=== PATIENT | male | born 1980 | race Two or more races ===

== ENCOUNTER 2025-03-16 12:35 | Outpatient (REF) | payer BC, SELFPAY ==
--- NOTE | ~2025-03-16 | XR_ITS ---
EXAMINATION: XR LUMBAR SPINE 2-3 VIEWS HISTORY: chronic LBP, h/o discectomy COMPARISON: There are no prior studies for comparison. FINDINGS: AP, lateral, and coned down views of the lumbar spine are submitted. Osseous mineralization is normal. The patient is status post posterior fusion of L4-S1 with pedicle screws, spinal stabilization rods, and intervertebral spacers. The fusion hardware is intact. There is mild anterior wedging of L2. The remaining vertebral bodies maintain normal height. Alignment is anatomic. The intervertebral disc spaces are maintained. The visualized paraspinal soft tissues are unremarkable. XR/XR lumbar spine 2-3V IMPRESSION: 1. Status post posterior fusion of L4-S1. 2. Mild anterior wedging of L2, likely chronic. Comparison with prior outside studies is recommended. Electronically signed by: Joshua Thomas MD 03/16/2025 01:05 PM EDT
--- OUTSIDE RECORDS SUMMARY | 2025-03-16 13:45 | XMS_ITS | Encounter Summary ---
Author Organization [email or web address] Address [address] [facility] 7[address] [place] [address] Care Team Providers Care District Home Economics Agent Name Role Phone Unavailable Primary Care Provider Unavailabl e Reason for Visit * Reason Onset Date Comments Chart Prep 03/11/2025 Encounter Details Date Type Department Care Team (Late st Contact Info) Description 03/11/2025 Telephone [facility] MEDICINE [address] [place], [place] [phone] Paula Reyes DO [address] [place], [place] [phone] Chart Prep Social History Tobacco Use Types Packs/Day Years Used Date Smoking Tobacco: Never Assessed Comments Unknown Sex and Gender Information Value Date Recorded Sex Assigned at Unknown 03/15/2025 11:43 AM EDT Legal Sex Male 2:28 PM EDT Gender Identity Male 03/16/2025 12:01 PM EDT Sexual Orientation Pearce 03/16/2025 12 :01 PM EDT documented as of this encounter Miscellaneous Notes * Telephone Encounter - Michaela Marquez [place] - 03/11/2025 2:19 PM EDT Chart Prep Labs: not applicable Images: not applicable Referrals: not applicable Vaccines due: Covid, Flu, Tdap, and Hep B Screenings: LMP and HIV Screening, Hepatitis Screening, Tobacco Screening Overdue care gaps: SBIRT, SDOH, PHQ-9, TREVOR-7, Oral health screening, Disability screen, and Tobacco documented in this encounter Plan of Treatment Not on file documented as of this encounter Visit Diagnoses Not on filedocumented in this encounter
--- OUTSIDE RECORDS SUMMARY | 2025-03-16 13:45 | XMS_ITS | Encounter Summary ---
Author Organization [employer] Address [address] [facility] [address] [place] [address] Care Team Providers Care Oiling Machine Operator Name Role Phone Paula Reyes DO Primary Care Provider [phone] Encounter Details Date Type Department Care Team (Late st Contact Info) Description 03/16/2025 10:45 AM EDT Office Visit [facility] [address] [place], [place] [phone] Paula Reyes DO [address] [place], [place] [phone] Routine history and physical examination of adult (Primary Dx); Mild intermittent asthma without complication; Chronic bilateral low back pain without sciatica; Subcutaneous nodule; Decreased visual acuity; Decreased hearing of both ears; BMI 28.0-28.9,adult Social History Tobacco Use Types Packs/Day Years Used Date Smoking Tobacco: Never Smokeless Tobacco: Never Tobacco Cessation:Counseling Given: Not Answered Alcohol Use Standard Drinks/Week Comments Never 0 (1 standard drink = 0.6 oz pur e alcohol) Comments Unknown Sex and Gender Information Value Date Recorded Sex Assigned at Unknown 03/15/2025 11:43 AM EDT Legal Sex Male 2:28 PM EDT Gender Identity Male 03/16/2025 12:01 PM EDT Sexual Orientation Pearce 03/16/2025 12 :01 PM EDT documented as of this encounter Last Filed Vital Signs Vital Sign Reading Time Taken Comments Blood Pressure 126/70 03/16/2025 11:08 AM EDT Pulse 59 03/16/2025 11:08 AM EDT Temperature 37.1 ??C (98.7 ??F) 03/16/2025 11:08 AM E DT Respiratory Rate 19 03/16/2025 11:08 AM EDT Oxygen Saturation 98% 03/16/2025 11:08 AM EDT Inhaled Oxygen Concentration - - Weight 73.7 kg (162 lb 8 oz) 03/16/2025 11:08 AM EDT Height 160 cm (5' 3 ) 03/16/2025 11:08 AM EDT Body Mass Index 28.79 03/16/2025 11:08 AM EDT documented in this encounter Plan of Treatment Scheduled Orders Name Type Priority Associated Diagnoses Orde r Schedule T4, Free Lab Routine Routine history and physical examination of adult Mild intermittent asthma without complication Chronic bilateral low back pain without sciatica Subcutaneous nodule Decreased visual acuity Decreased hearing of both ears BMI 28.0-28.9,adult Expected: 03/16/2025 (Approximate), Expires: 03/16/2026 Lipid Panel, Standard Lab Routine Routine history and physical examination of adult Mild intermittent asthma without complication Chronic bilateral low back pain without sciatica Subcutaneous nodule Decreased visual acuity Decreased hearing of both ears BMI 28.0-28.9,adult Expected: 03/16/2025 (Approximate), Expires: 03/16/2026 TSH Lab Routine Routine history and physical examination of adult Mild intermittent asthma without complication Chronic bilateral low back pain without sciatica Subcutaneous nodule Decreased visual acuity Decreased hearing of both ears BMI 28.0-28.9,adult Expected: 03/16/2025 (Approximate), Expires: 03/16/2026 Vitamin D, 25-Hydroxy, Total, Immunoassay Lab Routine Routine history and physical examination of adult Mild intermittent asthma without complication Chronic bilateral low back pain without sciatica Subcutaneous nodule Decreased visual acuity Decreased hearing of both ears BMI 28.0-28.9,adult Expected: 03/16/2025 (Approximate), Expires: 03/16/2026 Hepatic Function Panel Lab Routine Routine history and physical examination of adult Mild intermittent asthma without complication Chronic bilateral low back pain without sciatica Subcutaneous nodule Decreased visual acuity Decreased hearing of both ears BMI 28.0-28.9,adult Expected: 03/16/2025 (Approximate), Expires: 03/16/2026 Hemoglobin A1c Lab Routine Routine history and physical examination of adult Mild intermittent asthma without complication Chronic bilateral low back pain without sciatica Subcutaneous nodule Decreased visual acuity Decreased hearing of both ears BMI 28.0-28.9,adult Expected: 03/16/2025 (Approximate), Expires: 03/16/2026 CBC Lab Routine Routine history and physical examination of adult Mild intermittent asthma without complication Chronic bilateral low back pain without sciatica Subcutaneous nodule Decreased visual acuity Decreased hearing of both ears BMI 28.0-28.9,adult Expected: 03/16/2025, Expires: 03/16/2026 Basic Metabolic Panel Lab Routine Routine history and physical examination of adult Mild intermittent asthma without complication Chronic bilateral low back pain without sciatica Subcutaneous nodule Decreased visual acuity Decreased hearing of both ears BMI 28.0-28.9,adult Expected: 03/16/2025 (Approximate), Expires: 03/16/2026 Varicella zoster antibody, IgG Lab Routine Routine history and physical examination of adult Mild intermittent asthma without complication Chronic bilateral low back pain without sciatica Subcutaneous nodule Decreased visual acuity Decreased hearing of both ears BMI 28.0-28.9,adult Expected: 03/16/2025 (Approximate), Expires: 03/16/2026 Measles, Mumps, and Rubella (MMR) Antibodies??(IgG) Panel, Immune Status Lab Routine Routine history and physical examination of adult Mild intermittent asthma without complication Chronic bilateral low back pain without sciatica Subcutaneous nodule Decreased visual acuity Decreased hearing of both ears BMI 28.0-28.9,adult Expected: 03/16/2025 (Approximate), Expires: 03/16/2026 Hepatitis B surface antigen, EIA Lab Routine Routine history and physical examination of adult Mild intermittent asthma without complication Chronic bilateral low back pain without sciatica Subcutaneous nodule Decreased visual acuity Decreased hearing of both ears BMI 28.0-28.9,adult Expected: 03/16/2025 (Approximate), Expires: 03/16/2026 Chlamydia/N. Gonorrhoeae RNA, TMA, Urogenitial Microbiology Routine Routine history and physical examination of adult Mild intermittent asthma without complication Chronic bilateral low back pain without sciatica Subcutaneous nodule Decreased visual acuity Decreased hearing of both ears BMI 28.0-28.9,adult Ordered: 03/16/2025 HIV-1/2 Antigen and Antibodies, Fourth Generation, with Reflexes Lab Routine Routine history and physical examination of adult Mild intermittent asthma without complication Chronic bilateral low back pain without sciatica Subcutaneous nodule Decreased visual acuity Decreased hearing of both ears BMI 28.0-28.9,adult Expected: 03/16/2025 (Approximate), Expires: 03/16/2026 Hepatitis C Antibody with Reflex to HCV, RNA, Quantitative, Real-Time PCR Lab Routine Routine history and physical examination of adult Mild intermittent asthma without complication Chronic bilateral low back pain without sciatica Subcutaneous nodule Decreased visual acuity Decreased hearing of both ears BMI 28.0-28.9,adult Expected: 03/16/2025, Expires: 03/16/2026 RPR (Monitor) with Reflex to??Titer Lab Routine Routine history and physical examination of adult Mild intermittent asthma without complication Chronic bilateral low back pain without sciatica Subcutaneous nodule Decreased visual acuity Decreased hearing of both ears BMI 28.0-28.9,adult Expected: 03/16/2025, Expires: 03/16/2026 Hepatitis B Surface Antibody, Qualitative Lab Routine Routine history and physical examination of adult Mild intermittent asthma without complication Chronic bilateral low back pain without sciatica Subcutaneous nodule Decreased visual acuity Decreased hearing of both ears BMI 28.0-28.9,adult Expected: 03/16/2025 (Approximate), Expires: 03/16/2026 Hepatitis A Antibody, Total Lab Routine Routine history and physical examination of adult Mild intermittent asthma without complication Chronic bilateral low back pain without sciatica Subcutaneous nodule Decreased visual acuity Decreased hearing of both ears BMI 28.0-28.9,adult Expected: 03/16/2025 (Approximate), Expires: 03/16/2026 Hepatitis B Core Antibody, Total Lab Routine Routine history and physical examination of adult Mild intermittent asthma without complication Chronic bilateral low back pain without sciatica Subcutaneous nodule Decreased visual acuity Decreased hearing of both ears BMI 28.0-28.9,adult Expected: 03/16/2025 (Approximate), Expires: 03/16/2026 T-SPOT??.TB Lab Routine Routine history and physical examination of adult Mild intermittent asthma without complication Chronic bilateral low back pain without sciatica Subcutaneous nodule Decreased visual acuity Decreased hearing of both ears BMI 28.0-28.9,adult Expected: 03/16/2025 (Approximate), Expires: 03/16/2026 documented as of this encounter Procedures Procedure Name Priority Date/Time Associated Diagnosis Comments XR LUMBAR SPINE 2-3 VIEWS Routine 03/16/2025 12:39 PM EDT Chronic bilateral low back pain without sciatica documented in this encounter Results * XR Lumbar Spine 2-3 Views (03/16/2025 12:39 PM EDT) Anatomical Region Laterality Modality Spine, L-spine Radiographic Keeley ging 03/16/2025 12:3 9 PM EDT Narrative 03/16/2025 1:08 PM EDT ?[facility] ?[address] ?[place] [address] ?XRay Report ? Signed ? Patient: Colon, ?MR#: [id number] ? : 1980 ?Acct:[id number] ? Age/Sex: 44 / M ?ADM Date: 03/16/25 ? Loc: HO.HHCX ? Attending Dr: Paula Reyes DO ? Ordering Physician: Paula Reyes DO ?? Date of Service: 03/16/25 ?? Procedure(s): XR lumbar spine 2-3V ?? Accession Number(s): [id number] ? cc: Paula Reyes DO ? EXAMINATION: ??XR LUMBAR SPINE 2-3 VIEWS ? HISTORY: chronic LBP, h/o discectomy ? COMPARISON: There are no prior studies for comparison. ? FINDINGS: ??AP, lateral, and coned down views of the lumbar spine are ?? submitted. ??Osseous mineralization is normal. The patient is status ?? post posterior fusion of L4-S1 with pedicle screws, spinal ?? stabilization rods, and intervertebral spacers. The fusion hardware is ?? intact. ??There is mild anterior wedging of L2. ??The remaining vertebral ?? bodies maintain normal height. Alignment is anatomic. ??The ?? intervertebral disc spaces are maintained. ??The visualized paraspinal ?? soft tissues are unremarkable. ? XR/XR lumbar spine 2-3V ?? IMPRESSION: ? 1. Status post posterior fusion of L4-S1. ? 2. Mild anterior wedging of L2, likely chronic. Comparison with prior ?? outside studies is recommended. ? Electronically signed by: ??Joshua Thomas MD ??03/16/2025 01:05 PM EDT ?? RP ? Dictated By: ?Joshua Thomas MD ? Signed By: ?<Electronically signed by Joshua Thomas MD in OV> ?03/16/25 1305 ? DD/ 1239 ? TD/TT: 03/16/25 1300 ? Machine Preservative Filler: ? Procedure Note Shasta, Image - 03/16/2025 [facility] [address] [place] [address] XRay Report Signed Patient: Artem Gaines#: [id number] : 1980Acct:[id number] Age/Sex: 44 / MADM Date: 03/16/25 Loc: HO.HHCX Attending Dr: Paula Reyes DO Ordering Physician: Paula Reyes DO Date of Service: 03/16/25 Procedure(s): XR lumbar spine 2-3V Accession Number(s): [id number] cc: Paula Reyes DO EXAMINATION: XR LUMBAR SPINE 2-3 VIEWS HISTORY: chronic LBP, h/o discectomy COMPARISON: There are no prior studies for comparison. FINDINGS: AP, lateral, and coned down views of the lumbar spine are submitted. Osseous mineralization is normal. The patient is status post posterior fusion of L4-S1 with pedicle screws, spinal stabilization rods, and intervertebral spacers. The fusion hardware is intact. There is mild anterior wedging of L2. The remaining vertebral bodies maintain normal height. Alignment is anatomic. The intervertebral disc spaces are maintained. The visualized paraspinal soft tissues are unremarkable. XR/XR lumbar spine 2-3V IMPRESSION: 1. Status post posterior fusion of L4-S1. 2. Mild anterior wedging of L2, likely chronic. Comparison with prior outside studies is recommended. Electronically signed by: Joshua Thomas MD 03/16/2025 01:05 PM EDT Dictated By: Joshua Thomas MD Signed By: <Electronically signed by Joshua Thomas MD in OV> 03/16/25 1305 DD/ 1239 TD/TT: 03/16/25 1300 Machine Preservative Filler: Paula Reyes DO IMG XR PROCEDURES Final Resu lt documented in this encounter Visit Diagnoses Diagnosis Routine history and physical examination of adult- Primary Mild intermittent asthma without complication Chronic bilateral low back pain without sciatica Subcutaneous nodule Decreased visual acuity Decreased hearing of both ears BMI 28.0-28.9,adult documented in this encounter Care Teams Oiling Machine Operator Relationship Specialty Start Date End Date Paula Reyes DO [address] [place] [id number] PCP - General Family Medicine 03/16/25 documented as of this encounter
--- OUTSIDE RECORDS SUMMARY | 2025-03-16 13:45 | XMS_ITS | Encounter Summary ---
Author Organization [employer] Address 75 [facility] 7t [place] [address] Care Team Providers Care Spine Specialist Name Role Phone Paula Reyes DO Primary Care Provider Encounter Details Date Type Department Care Team (Latest Contact Info) Description 03/16/2025 Travel Social History Tobacco Use Types Packs/Day Years Used Date Smoking Tobacco: Never Smokeless Tobacco: Never Alcohol Use Standard Drinks/Week Comments Never 0 (1 standard drink = 0.6 oz pur e alcohol) Comments Unknown Sex and Gender Information Value Date Recorded Sex Assigned at Unknown 03/15/2025 11:43 AM EDT Legal Sex Male 2:28 PM EDT Gender Identity Male 03/16/2025 12:01 PM EDT Sexual Orientation Pearce 03/16/2025 12 :01 PM EDT documented as of this encounter Plan of Treatment Not on file documented as of this encounter Visit Diagnoses Not on filedocumented in this encounter Care Teams Spine Specialist Relationship Specialty Start Date End Date Paula Reyes DO [address] [place] [phone] PCP - General Family Medicine 03/16/25 documented as of this encounter
--- OUTSIDE RECORDS SUMMARY | 2025-03-16 13:45 | XMS_ITS | Clinical Summary ---
Author Organization [employer] Address 75 [facility] 7t h Floor [place] [phone] Care Team Providers Care Special Population Paraprofessional Name Role Phone Paula Reyes DO Primary Care Provider Allergies No known active allergies Encounters Date Type Department Care Team Description 03/16/2025 10:45 AM EDT Office Visit [address] [phone] Paula Reyes DO Routine history and physical examination of adult (Primary Dx); Mild intermittent asthma without complication; Chronic bilateral low back pain without sciatica; Subcutaneous nodule; Decreased visual acuity; Decreased hearing of both ears; BMI 28.0-28.9,adult 03/16/2025 Travel 03/11/[address] [phone] Paula Reyes DO Chart Prep 03/08/2025 Patient Outreach [address] [address] Bartolo Mack MD Pre-visit Planning (Pre visit planning LVM ) 12/22/[address] [phone] Bartolo Mack MD from Last 3 Months Family History Medical History Relation Name Comments Diabetes Brother Diabetes Father Heart disease Father Hypertension Father Stroke Father Ovarian cancer Mother Breast cancer Mother's Sister Diabetes Paternal Grandfather Diabetes Paternal Grandmother Relation Name Status Comments Brother Father Mother Mother's Sister Paternal Grandfather Paternal Grandmother Social History Tobacco Use Types Packs/Day Years [...] Orientation Pearce 03/16/2025 12 :01 PM EDT Last Filed Vital Signs Vital Sign Reading [...] Mass Index 28.79 03/16/2025 11:08 AM EDT Plan of Treatment Health Maintenance Due Date Last Done Comments Depression Screening 1980 HIV Screening 1980 Lipid Panel 1980 SDOH Screening 1980 Disability Screening 1980 Family Planning (PISQ) 1995 Hepatitis C Screening 1998 DTaP/Tdap/Td Vaccines (1 - Tdap) 1999 Hepatitis B Vaccines (1 of 3 - 19+ 3-dose series) 1999 Pneumococcal Vaccine: Pediat rics (0 to 5 Years) and At-Risk Patients (6 to 49) Years) (1 of 2 - PCV) 1999 COVID-19 Vaccine ( - 2023-2 5 season) 2024 Influenza Vaccine (#1) 2024 Alcohol/Substance Use Screening 03/16/2026 Tobacco Screening 03/16/2026 03/16/2025 Zoster Vaccines (1 of 2) 2030 RSV Patients and Pa tients Aged 60 years or older (1 - 1-dose 75+ series) 2055 HIB Vaccines Aged Out No longer eligi ble based on patient's age to complete this topic HPV Vaccines Aged Out No longer eligi ble based on patient's age to complete this topic Hepatitis A Vaccines Aged Out No long er eligible based on patient's age to complete this topic IPV Vaccines Aged Out No longer eligi ble based on patient's age to complete this topic Meningococcal B Vaccine Aged Out No l onger eligible based on patient's age to complete this topic Meningococcal Vaccine Aged Out No jenna sonia eligible based on patient's age to complete this topic RSV under 20 months Aged Out No longe r eligible based on patient's age to complete this topic Rotavirus Vaccines Aged Out No longer eligible based on patient's age to complete this topic Procedures Procedure Name Priority Date/Time Associated Diagnosis Comments XR LUMBAR SPINE 2-3 VIEWS Routine 03/16/2025 12:39 PM EDT Chronic bilateral low back pain without sciatica from Last 3 Months Results * XR Lumbar Spine 2-3 Views (03/16/2025 12:39 PM EDT) Anatomical Region Laterality Modality Spine, L-spine Radiographic Keeley ging 03/16/2025 12:3 9 PM EDT Narrative 03/16/2025 1:08 PM EDT ?[facility] ?[address] ?[place] [address] ?XRay Report ? Signed ? Patient: Colon, ?MR#: [id number] ? : 1980 ?Acct:[id number] ? Age/Sex: 44 / M ?ADM Date: 03/16/25 ? Loc: HO.HHCX ? Attending Dr: Paula Reyes DO ? Ordering Physician: Paula Reyes DO ?? Date of Service: 03/16/25 ?? Procedure(s): XR lumbar spine 2-3V ?? Accession Number(s): [id number] ? cc: Paula Reyes DO ? EXAMINATION: [...] ??Joshua Thomas MD ??03/16/2025 01:05 PM EDT ? Dictated By: ?Joshua Thomas MD ? Signed By: ?<Electronically signed by Joshua Thomas MD in OV> ?03/16/25 1305 ? DD/ 1239 ? TD/TT: 03/16/25 1300 ? Typesetting Machine Operator/Tender: ? Procedure Note Shasta, Rolando - 03/16/[address] [address] XRay Report Signed Patient: Jose GainesMR#: [id number] : 1980Acct:[id number] Age/Sex: 44 / MADM Date: 03/16/25 Loc: HO.HHCX Attending Dr: Paula Reyes DO Ordering Physician: Paula Reyes DO Date of Service: 03/16/25 Procedure(s): XR lumbar spine 2-3V Accession Number(s): [id number] cc: Paula Reyes DO EXAMINATION: XR LUMBAR [...] Joshua Thomas MD 03/16/2025 01:05 PM EDT RP Dictated By: Joshua Thomas MD Signed By: <Electronically signed by Joshua Thomas MD in OV> 03/16/25 1305 DD/ 1239 TD/TT: 03/16/25 1300 Typesetting Machine Operator/Tender: Paula Reyes DO IMG XR PROCEDURES Final Resu lt from Last 3 Months Insurance [employer]BS PPO Care Teams Special Population Paraprofessional Relationship Specialty Start Date End Date Paula Reyes DO [address] [place] [address] PCP - General Family Medicine 03/16/25
[2025-03-16 16:43] LABS: Hematocrit 45.1 % (42.0-52.0); Hemoglobin 15.4 g/dl (14.0-18.0); Mean Corpuscular HGB Conc 34.1 g/dl (31.0-36.0); Mean Corpuscular Hemoglobin 29.4 pg (27.0-33.0); Mean Corpuscular Volume 86.1 fL (80.0-98.0); Mean Platelet Volume 9.9 fL (9.4-12.4); NRBC Pct Auto 0.4 /100WBC (0.0-0.2); Platelet Count 313 X10*3/uL (160-400); Red Blood Count 5.24 X10*6/uL (4.60-5.80); Red Cell Distribution Width 13.4 % (11.0-16.0); White Blood Count 7.7 X10*3/uL (4.8-10.8)
[2025-03-16 16:52] LABS: Estimated Average Glucose 103 mg/dL; Hemoglobin A1C 129.4333 umol/L; Hemoglobin A1c % 5.2 % (<6.0); Total Hemoglobin (HGBA1C) 3841.5966 umol/L
[2025-03-16 16:56] LABS: Alanine Aminotransferase 29 U/L (0-40); Alkaline Phosphatase 76 U/L (39-117); Anion Gap 10 (12-20); Aspartate Amino Transferase 29 U/L (5-37); Bilirubin Direct 0.2 mg/dL (0.0-0.5); Bilirubin Total 0.6 mg/dL (0.0-1.0); Blood Urea Nitrogen 10 mg/dL (9-16); Calcium 9.8 mg/dL (8.4-10.2); Carbon Dioxide 29 mmol/L (22-29); Chloride 104 mmol/L (96-108); Cholesterol 189 mg/dL (<200); Estimated Glomerular Filt Rate > 60; Glucose Random 84 mg/dL (60-115); HDL Cholesterol 51 mg/dL (>40); LDL Cholesterol Calculated 121 mg/dL (<100); Potassium 3.9 mmol/L (3.3-5.1); Sodium 139 mmol/L (135-145); Total Protein 8.2 g/dL (6.5-8.0); Triglycerides 85 mg/dL (<150)
[2025-03-16 17:22] LABS: Free T4 (Free Thyroxine) 0.92 ng/dL (0.71-1.85); Thyroid Stimulating Hormone 0.97 uIU/mL (0.32-4.0); Vitamin D 25-OH Total 32.9 ng/mL (>30)
[2025-03-16 17:52] LABS: CT PCR NOT DETECTED (Not Detect.); NG PCR NOT DETECTED (Not Detect.)
[2025-03-17 04:16] LABS: HBS Num1 0.48 mIU/mL (0-7.99); HBc Num1 0.08 S/CO (0.00-0.79); HBsAGNum1 0.36 S/CO (0.00-0.99); HIV AB/AG Nonreactive (Nonreactive); HIV Num 1 0.07 S/CO (0.00-0.99); Hepatitis B Core Antibody Nonreactive (Nonreactive); Hepatitis B Surface Antigen Negative (Negative); ~HepC Num1 0.07 S/CO (0.00-0.79); ~Hepatitis B Surface Antibody NONREACTIVE (Nonreactive); ~Hepatitis C Antibody Nonreactive (Nonreactive)
[2025-03-18 03:27] LABS: Rubella IgG Antibody 3.81 Index; Varicella IgG Antibody 8.56 S/CO
[2025-03-18 11:23] LABS: RPR Rapid Plasma Reagin NON-REACTIVE (NON-REACTIVE)
== END 2025-03-16 12:36 | disposition home or self-care (01) ==
LOC: HO.HHCX 12:35
PROVIDERS: Visit Provider Family Medicine
DX: M54.50 Low back pain, unspecified (principal); G89.29 Other chronic pain; J45.20 Mild intermittent asthma, uncomplicated; R22.9 Localized swelling, mass and lump, unspecified; H54.7 Unspecified visual loss; H91.93 Unspecified hearing loss, bilateral; Z20.2 Contact with and (suspected) exposure to infections with a predominantly sexual mode of transmission; Z11.4 Encounter for screening for human immunodeficiency virus [HIV]; Z13.1 Encounter for screening for diabetes mellitus; Z13.6 Encounter for screening for cardiovascular disorders; Z00.00 Encounter for general adult medical examination without abnormal findings
CPT/HCPCS: 72100; 80048; 80061; 80076; 82306; 83036; 84439; 84443; 85027; 86481; 86592; 86704; 86706; 86708; 86735; 86762; 86765; 86787; 86803; 87340; 87389; 87491; 87591

== ENCOUNTER → 2025-03-16 12:39 | Outpatient (BNV) | payer BC, SELFPAY | PROVIDERS: Visit Provider Radiology Diagnostic Radiology | DX: M54.50 Low back pain, unspecified (principal) | CPT/HCPCS: 72100 ==

== ENCOUNTER 2025-03-16 12:53 | Outpatient (REF) | payer BC, SELFPAY | END 2025-03-16 12:54 | disposition home or self-care (01) | LOC: HO.HHCL 12:53 | PROVIDERS: Visit Provider Family Medicine | DX: Z13.89 Encounter for screening for other disorder (principal) ==